=== PATIENT | male | born 1930 | race Two or more races ===

== ENCOUNTER 2017-06-14 06:56 | Day surgery (SDC) | payer MEDICARE, OTHER ==
[2017-06-10 09:17] LABS: Basophils # (auto) 0 uL; Basophils % (auto) 0.4 % (0.0-2.0); CONDITION Y; Eosinophils # (auto) 0.3 uL; Eosinophils % (auto) 2.9 % (0.0-7.0); Hematocrit 41.1 % (41.0-53.0); Hemoglobin 13.7 g/dL (13.5-17.5); Lymphocytes # (auto) 1.9 uL; Lymphocytes % (auto) 20.4 % (10.0-50.0); Mean Corpuscular Hemoglobin 31.8 pg (28.0-32.0); Mean Corpuscular Hgb Conc. 33.3 g/dL (32.0-36.0); Mean Corpuscular Volume 95.2 fL (80.0-100.0); Mean Platelet Volume 6.5 fL (7.4-10.4); Monocytes # (auto) 0.8 uL; Monocytes % (auto) 8.6 % (0.0-12.0); Neutrophils # (auto) 6.4 uL; Neutrophils % (auto) 67.7 % (37.0-80.0); Platelet Count (auto) 300 10^3/uL (140-450); Red Cell Distribution Width 15.4 % (11.6-16.0); White Blood Cell 9.5 10^3/uL (4.4-10.8)
[2017-06-10 09:29] LABS: INR 1.07 (0.9-1.15); Partial Thromboplastin Time 29.2 sec (22.64-33.71); Prothrombin Time 11.7 sec (9.37-12.3)
[2017-06-10 09:48] LABS: BUN/Creatinine Ratio 11.6; Potassium 3.6 mmol/L (3.5-5.1)
[2017-06-10 10:04] LABS: Urine Bilirubin Negative (Negative); Urine Blood 2+ /uL (Negative); Urine Color Yellow (Yellow); Urine Glucose Normal (Normal); Urine Ketone Negative (Negative); Urine Nitrite Negative (Negative); Urine RBC 19 /hpf (0 - 3); Urine Urobilinogen Normal (Negative); Urine WBC Clumps PRESENT /hpf (None Seen); Urine pH 6.5 (5.0-8.0)
[~2017-06-14] VITALS: Ht 177.8 cm; Wt 94.3 kg
[~2017-06-14 06:56] MED LIST: ASPI81TA27 PO; ATOR20TA50 PO; CARV3.1240 PO; DOCU100T15 PO; HYDR25TA4 PO; INSLANTI SC; LOP2C PO; METH750T3 PO; NITR0.4S29 SL; OXYB5TAB61 OR; POTA10TA51 PO; RANO500T PO; TAMS0.4C36 PO; TRAM100T37 PO; ZOLP10TA6 PO
[2017-06-14] MEDS ORDERED: ceFAZolin 1GM/50ML D5W 50 ML IV ONE (08:06)
[2017-06-14 08:14] LABS: Basophils # (auto) 0 uL; Basophils % (auto) 0.3 % (0.0-2.0); CONDITION Y; Eosinophils # (auto) 0.3 uL; Eosinophils % (auto) 3.3 % (0.0-7.0); Hematocrit 39.3 % (41.0-53.0); Hemoglobin 13.2 g/dL (13.5-17.5); Lymphocytes % (auto) 21.3 % (10.0-50.0); Mean Corpuscular Hemoglobin 31.6 pg (28.0-32.0); Mean Corpuscular Hgb Conc. 33.6 g/dL (32.0-36.0); Mean Corpuscular Volume 93.9 fL (80.0-100.0); Mean Platelet Volume 6.4 fL (7.4-10.4); Monocytes # (auto) 0.8 uL; Monocytes % (auto) 8.4 % (0.0-12.0); Neutrophils # (auto) 6.3 uL; Neutrophils % (auto) 66.7 % (37.0-80.0); Platelet Count (auto) 293 10^3/uL (140-450); Red Cell Distribution Width 15.5 % (11.6-16.0); White Blood Cell 9.4 10^3/uL (4.4-10.8)
[2017-06-14 08:30] LABS: INR 1.09 (0.9-1.15); Partial Thromboplastin Time 29.3 sec (22.64-33.71); Prothrombin Time 11.9 sec (9.37-12.3)
[2017-06-14 08:46] LABS: BUN/Creatinine Ratio 9.8; Potassium 3.7 mmol/L (3.5-5.1)
[2017-06-14] MEDS ORDERED: fentaNYL CITRATE 100 MCG/2 ML VL ONE (11:01)
[2017-06-14] MEDS ORDERED: MIDAZOLAM HCL 1MG/1ML-2 ML VIAL ONE (11:01)
[2017-06-14] MEDS ORDERED: GENTAMICIN SULF 80 MG/2 ML VIAL ONE (11:57)
[2017-06-14] MEDS ORDERED: LABETALOL HCL 5 MG/ML 4ML SYRINGE IV PRN (12:00)
[2017-06-14] MEDS ORDERED: ePHEDrine SULFATE 50 MG/ML AMP IV PRN (12:00)
[2017-06-14] MEDS ORDERED: HYDROmorphone HCL 2 MG/ML VL IV PRN (12:00)
[2017-06-14] MEDS ORDERED: BELLADONNA ALKAL/OPIUM (16.2/30MG) RECT SUPP PR ONE (12:45)
[2017-06-14 13:06] LABS: Urine Bilirubin Negative (Negative); Urine Color Yellow (Yellow); Urine Glucose Normal (Normal); Urine Ketone Negative (Negative); Urine Mucus FEW (None Seen); Urine RBC 6 /hpf (0 - 3); Urine Squamous Epithelial Cell FEW /hpf (<5); Urine Urobilinogen Normal (Negative); Urine pH 7.5 (5.0-8.0)
[2017-06-14 13:07] LABS: Urine Blood 2+ /uL (Negative); Urine Nitrite POSITIVE (Negative)
[2017-06-14 16:30] VITALS: BP 138/76
== END 2017-06-14 16:34 | disposition home or self-care (01) ==
LOC: SUR 06:56
PROVIDERS: ATTEND Urology
DX: N40.1 Benign prostatic hyperplasia with lower urinary tract symptoms (principal); N32.0 Bladder-neck obstruction; Z95.0 Presence of cardiac pacemaker; E11.9 Type 2 diabetes mellitus without complications; Z87.891 Personal history of nicotine dependence; Z95.1 Presence of aortocoronary bypass graft; Z90.49 Acquired absence of other specified parts of digestive tract
CPT/HCPCS: 36415; 52601; 80048; 81001; 82962; 85025; 85610; 85730; 87086; 87088; 87186; 88305; J0690; J1580; J2250; J3010